=== PATIENT | male | born 1960 | race Caucasian/White ===

== ENCOUNTER 2017-10-05 13:23 | Inpatient (IN) | payer OTHER ==
[~2017-10-05] VITALS: Ht 188 cm; Wt 80.4 kg
--- NOTE | ~2017-10-05 | PLAN ---
[facility] [place] [address] REHAB UNIT PLAN OF CARE Name: SUBRAMANIANENDY Room #: 504-2 DIS IN M.R.#: [id number] Admission: 10/05/17 Attend Phys: Isiah Cedillo MD Discharge: 10/12/17 Date of : 62 Report #: [id number] THIS REPORT FOR: //name// CC: Isiah Cedillo [facility] unknown DATE OF SERVICE: 10/07/2017 The patient was seen back today in followup. He is in no distress. Temperature 36.8, pulse 82, respirations 18, blood pressure 124/83. No focal calf swelling. Transfers are contact guard. He is ambulating min assist, 350 feet, without a device. In occupational therapy, lower body dressing is min assist, upper body dressing is set up. He has [id number] comprehensive deficits. ASSESSMENT: 1. Hypoxic encephalopathy. 2. Out of hospital cardiac arrest with pulseless electrical activity. 3. History of coronary artery disease with cardiac stents. 4. Hypertension. 5. History of tobacco abuse. 6. Initial dysphagia that has improved. 7. Significant cognitive issues. 8. Functional mobility and ADL deficits. PLAN: The overall plan of care is based on the preadmission screen, post-admission physician evaluation and information garnered from therapy assessments. 1. Estimated length of stay is 10 days to 2 weeks depending progress. 2. Medical prognosis is reasonably good. 3. Anticipated interventions includes the interdisciplinary acute inpatient rehabilitation program with PT and OT and speech involved, rehab nursing assisting as well as interdisciplinary team. 4. Anticipated functional outcomes would be for the patient to become modified independent with transfers, mobility and ADLs, so that he can hopefully return back to his prior living situation. 5. Discharge destination would be back to the home setting. He does live alone and we will need to be checking regarding other family members, friends, etc. that could be of assistance. He apparently has 2 sisters who are involved. 6. Expected therapy by discipline includes PT, OT and Speech 1 hour per day, each five days a week throughout the duration of the acute inpatient rehabilitation stay. <ELECTRONICALLY SIGNED> By: Isiah Cedillo MD 11/04/17 [id number] [id number] Isiah Cedillo MD /nt
--- NOTE | ~2017-10-05 | HC ---
[facility] [place] [address] CONSULTATION Name: ENDY SUBRAMANIAN Room #: 504-1 ADM IN M.R.#: [id number] Admission: 10/05/17 Attend Phys: Isiah Cedillo MD Discharge: Date of : 62 Report #: [id number] THIS REPORT FOR: //name// CC: Isiah Cedillo [facility] unknown DATE OF SERVICE: 10/08/2017 NEUROBEHAVIORAL STATUS EXAM ATTENDING PHYSICIAN: Isiah Cedillo MD EVENT MARKETING INTERN: Milad Walton, PhD CLINICAL PRESENTATION: The patient is a 56-year-old male admitted to the [facility] Unit for a comprehensive inpatient rehabilitation program to improve functional mobility, activities of daily living and self-care and mental status secondary to deficits from anoxic encephalopathy. The patient has a past medical history of hypertension, dyslipidemia and coronary artery disease. He is reported to have experienced an out of hospital cardiac arrest, while at the [employer] in which he is employed. The patient was placed on hypothermic protocol and required intermittent IV pressors during his recovery. A complete description of his medical condition and history along with medications can be found in his medical record. Neuropsychological consultation was requested to provide assistance in the assessment of cognitive and emotional status and to provide recommendations and services. Prior to this most recent admission, he was living independently in his own home. 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 The patient reports having a large family of 9 siblings. He states that 2 of the siblings might be . He is a high school graduate. The patient has a remote history of severe alcohol and drug abuse. He reports abstinence from alcohol and drug use for the last 12 years. The patient has never and has no children. TECHNIQUES UTILIZED: Clinical interview, review of medical records, staff consultation and behavioral observation, Mini-Mental status exam 2 standard version, clock drawing and verbal fluency assessment (category) and brief abstract reasoning test. EXAMINATION FINDINGS: The patient was alert and cooperative with the assessment. His voice is tremulous. He has an upper extremity tremor. The patient was vague in regard to describing the reason for his hospitalization. He has amnesia surrounding his initial admission. There is no evidence of aphasia. He does not report auditory or visual hallucinations[place] [address] CONSULTATION Name: MORISENDY Tatiana Room #: 504-1 [facility]#: [id number] Admission: 10/05/17 Attend Phys: Isiah Cedillo MD Discharge: Date of : 62 Report #: [id number] thought disorder. He described having difficulty with memory, depression and anxiety. He does not report difficulty with word finding, sleep or appetite. Physical pain is described in his chest as well as his head. His performance on the MMSE 2 brief version was extremely low with a raw score of 11 of 16 and a T score of 17. He was 3/3 for initial registration, 4/5 for orientation to time, 4/[address] and 0/3 for immediate recall of 3 items after a brief time delay and distraction. Performance on the MMSE 2 standard version was extremely low with a raw score of 20 and a T score of 19. He was 2/5 for serial sevens, 1/2 for naming, 1/1 for repetition, 3/3 for auditory comprehension. He could read and follow a single command and write a sentence. The patient was unable to copy a simple geometric design. Category fluency was extremely low with a raw score of 12. Brief abstract reasoning test was extremely low with a raw score of 3/8. The patient was unable to set the hands of the clock at a designated time. The concept of hand placement was impaired. This type of presentation suggests a severe impairment with memory, sustained concentration and attention, visual spatial organization and executive functioning. 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 RECOMMENDATIONS: The patient will require supervision to assist with the management of medication, finances and nutrition. Driving should be discontinued. A followup neuropsychological evaluation will help clarify the severity of cognitive deficits approximately three months most discharge. At this time, 24-hour care is necessary. Unfortunately, ecovery from anoxia is often very poor. Thank you very much for allowing me to provide the consultation on this patient. <ELECTRONICALLY SIGNED> By: Milad Walton, PhD 10/10/17 [id number] Milad Walton, PhD /nt
--- NOTE | ~2017-10-05 | H ---
[facility] [place] [address] HISTORY AND PHYSICAL Name: SUBRAMANIANENDY Tatiana Room #: 504-1 ADM IN M.R.#: [id number] Admission: 10/05/17 Attend Phys: Isiah Cedillo MD Discharge: Date of : 62 Report #: [id number] THIS REPORT FOR: //name// CC: Isiah Cedillo [facility] unknown DATE OF SERVICE: 10/05/2017 HISTORY AND PHYSICAL/POSTADMISSION PHYSICIAN EVALUATION HISTORY OF PRESENT ILLNESS: The patient is a 56-year-old white male, who had an out of hospital cardiac arrest. He [place] at a mall. Security performed CPR. EMS arrived, he was in PEA. He was admitted to [facility]. He was placed on the hypothermic protocol, required intermittent IV pressors. Neurologic status was noted to be improving. It appeared that he had had a cardiopulmonary arrest and was found to be in PEA. He was also found to be severely hypokalemic with a potassium of 2.6. Since the initial rhythm was noted to be PEA and not VT or VF and ejection fraction by echo was noted to be normal. It was not felt appropriate to do an EP study or role for ICD. He was felt to be cardiovascularly stable and ready for rehab. He has now been admitted as he has significant hypoxic encephalopathy with decreased cognition, safety, and insight as well as decreased balance, functional mobility, and ADL independence. He has now been admitted to the acute in-hospital inpatient rehabilitation [place] at [facility]. PAST MEDICAL HISTORY: Includes a history of hypertension, dyslipidemia, and history of coronary artery disease. PAST SURGICAL HISTORY: Includes PCI with stenting, palate repair as well as left hip surgery. HABITS: Includes tobaccoism, questionable history of alcohol abuse. ALLERGIES: No known drug allergies. SOCIAL HISTORY: He lives alone in a mobile home, 5 steps in, did not utilize gait aids. 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 REVIEW OF SYSTEMS: He has had some upper chest wall discomfort, which was noted over at [place] and felt to be from the compressions. No chest pain per se or shortness of breath or abdominal discomfort. No focal extremity pain complaints. PHYSICAL EXAMINATION: GENERAL: A tall 56-year-old white male, in no obvious distress. [address] [address] HISTORY AND PHYSICAL Name: ENDY SUBRAMANIAN Room #: 504-1 ADM IN .R.#: [id number] Admission: 10/05/17 Attend Phys: Isiah Cedillo MD Discharge: Date of : 62 Report #: [id number] VITAL SIGNS: Temperature 36.9, pulse 92, respirations 16, blood pressure 100/76. The patient is alert. HEENT: Appeared to be benign. He knew he was at [place]. He was 1/3 at 3 minutes for short-term memory. Serial 7's were poor. EOMs appeared intact. CHEST: Sounded clear to auscultation. CARDIOVASCULAR: Regular rate and rhythm. NEUROLOGIC: He has some sternal and costal discomfort from the CPR. ABDOMEN: Bowel sounds positive, nontender. GENITOURINARY AND RECTAL: Deferred. EXTREMITIES: He has functional range of motion of the upper extremity. Strength is grade 4- to 4/5. DTRs are trace to 1. Lower extremities, no focal calf swelling, functional range of motion with strength grade 4+/5. He does have decrease balance with functional mobility with contact guard transfers and min assist with attempt at short distance ambulation. ASSESSMENT: A 56-year-old white male with the following problem list: 1. Hypoxic encephalopathy. 2. Out of hospital cardiac arrest with pulseless electrical activity. 3. History of coronary artery disease with cardiac stents. 4. Hypertension. 5. History of tobacco abuse. 6. Initial dysphagia that has improved. 7. Significant cognitive issues. 8. Functional mobility and activities of daily living deficits. PLAN: The patient is admitted for acute in-hospital inpatient rehabilitation. From a postadmission physician evaluation perspective, there are no relevant changes since the preadmission screening. Please see the above review of prior and current medical and functional conditions and comorbidities. Please see the patient's previous and current functional status. As far as risk of complications, the patient has multiple medical comorbidities as noted above. Initial plan of care involves the interdisciplinary acute inpatient rehabilitation program with the goal of maximizing the patient's functional independence, so that he can hopefully return back to his prior living situation. Prognosis is reasonably good with estimated length of stay probably at least 10 days to 2 weeks pending progress. Potential barriers would include the patient's multiple medical comorbidities and decreased functional status. We will ask Internal Medicine to assist regarding medical issues in this patient's care. Also, he was seen by Psychiatry apparently while at [place] and they noted generalized anxiety disorder with cognitive disorder and adjustment disorder with mixed emotional features. Other comorbidities during [facility] [address] [place] [address] HISTORY AND PHYSICAL Name: ENDY SUBRAMANIAN Room #: 504-1 ADM IN M.R.#: [id number] Admission: 10/05/17 Attend Phys: Isiah Cedillo MD Discharge: Date of : 62 Report #: [id number] his acute hospitalization includes acute renal insufficiency, acute respiratory failure, troponin elevation, SIRS with leukocytosis, and lactic acidosis. <ELECTRONICALLY SIGNED> By: Isiah Cedillo MD 10/07/17 1306 [id number] Isiah Cedillo MD /PMT
[2017-10-05] MEDS ORDERED: AUGMENTIN 875-1 EACH PO (16:58)
[2017-10-05] MEDS ORDERED: PLAVIX 75 MG TA75 M1 PO (16:58)
[2017-10-05] MEDS ORDERED: MAGOX 400400 MG PO (17:00)
[2017-10-05] MEDS ORDERED: LISINOPRIL10 MG PO (17:00)
[2017-10-05] MEDS ORDERED: TOPROL XL100 MG PO (17:09)
[2017-10-05] MEDS ORDERED: NITROGLYCERIN0.4 MG (17:12)
[2017-10-05] MEDS ORDERED: SIMVASTATIN40 MG PO (17:12)
[2017-10-05] MEDS ORDERED: ALDACTONE25 MG PO (17:13)
[2017-10-05 19:30] VITALS: BP 105/71
[2017-10-06 06:19] LABS: HEMATOCRIT 29.3 % (42.0-52.0); HEMOGLOBIN 10.4 gm/dL (14.0-18.0); MCH 34.8 pg (26.0-34.0); MCHC 35.4 g/dL (28.0-37.0); MCV 98.3 fL (80.0-100.0); RBC 2.98 mil/uL (4.50-6.00); WBC 10.4 thou/uL (4.0-11.0)
[2017-10-06 06:31] LABS: CALCIUM 9.2 mg/dL (8.5-10.1); CREATININE 0.9 mg/dL (0.7-1.3); POTASSIUM 3.8 mmol/L (3.5-5.1)
[2017-10-06 08:00] VITALS: BP 100/76
[2017-10-06 19:00] VITALS: BP 128/83
[2017-10-07 07:30] VITALS: BP 124/83
[2017-10-07 12:25] LABS: HEMATOCRIT 35.1 % (42.0-52.0); HEMOGLOBIN 11.9 gm/dL (14.0-18.0); MCH 33.4 pg (26.0-34.0); MCHC 33.8 g/dL (28.0-37.0); MCV 98.8 fL (80.0-100.0); RBC 3.56 mil/uL (4.50-6.00); RDW 13.4 % (10.5-14.5); WBC 9.7 thou/uL (4.0-11.0)
[2017-10-07 12:26] LABS: PLATELET COUNT 616 thou/uL (150-400)
[2017-10-07 12:41] LABS: CALCIUM 9.4 mg/dL (8.5-10.1); CREATININE 1.2 mg/dL (0.7-1.3); POTASSIUM 4.4 mmol/L (3.5-5.1)
[2017-10-07 13:02] LABS: ABSOLUTE NEUTROPHILS 7.4 thou/uL (1.4-8.2); PLATELET ESTIMATE INCREASED
[2017-10-07 19:58] VITALS: BP 100/51
[2017-10-08 06:55] VITALS: BP 111/77
[2017-10-08 20:58] VITALS: BP 81/47
[2017-10-09 00:19] VITALS: BP 110/67
[2017-10-09 08:00] VITALS: BP 119/63
[2017-10-09 19:22] VITALS: BP 106/71
[2017-10-10 06:36] LABS: ABSOLUTE NEUTROPHILS 3.8 thou/uL (1.4-8.2); BASOPHILS 1.2 % (0.0-2.0); EOSINOPHILS 3.7 % (0.0-3.0); HEMATOCRIT 34.4 % (42.0-52.0); HEMOGLOBIN 11.8 gm/dL (14.0-18.0); MCH 33.5 pg (26.0-34.0); MCHC 34.4 g/dL (28.0-37.0); MCV 97.5 fL (80.0-100.0); MONOCYTES 11.2 % (1.0-8.0); PLATELET COUNT 640 thou/uL (150-400); POLYS 58.9 % (36.0-66.0); RBC 3.53 mil/uL (4.50-6.00); RDW 13.7 % (10.5-14.5); WBC 6.4 thou/uL (4.0-11.0)
[2017-10-10 06:44] LABS: CALCIUM 8.9 mg/dL (8.5-10.1); POTASSIUM 4.1 mmol/L (3.5-5.1)
[2017-10-10 08:00] VITALS: BP 110/76
[2017-10-10 20:20] VITALS: BP 97/64
[2017-10-11 06:48] VITALS: BP 108/75
[2017-10-11 19:55] VITALS: BP 111/73
[2017-10-12] VITALS (7 sets, daily range): BP systolic 109; BP diastolic 74
[2017-10-12 04:23] LABS: CALCIUM 8.8 mg/dL (8.5-10.1); POTASSIUM 3.9 mmol/L (3.5-5.1)
[2017-10-12] MEDS ORDERED: TOPROL XL100 MG PO (10:11)
[2017-10-12] MEDS ORDERED: COLACE100 MG PO (10:11)
[2017-10-12] MEDS ORDERED: PEPCID20 MG PO (10:11)
[2017-10-12] MEDS ORDERED: NITROGLYCERIN0.4 MG PO (10:11)
[2017-10-12] MEDS ORDERED: MAGOX 400400 MG PO (10:11)
[2017-10-12] MEDS ORDERED: ALDACTONE25 MG PO (10:11)
[2017-10-12] MEDS ORDERED: SIMVASTATIN40 MG PO (10:11)
[2017-10-12] MEDS ORDERED: PLAVIX 75 MG TA75 M1 PO (10:11)
[2017-10-12] MEDS ORDERED: LISINOPRIL10 MG PO (10:11)
[2017-10-12] MEDS ORDERED: TRAZODONE HCL50 MG PO (12:32)
== END 2017-10-12 13:43 | disposition home health service (06) | DRG 91 ==
LOC: ENTRNSPT 10-12 13:37 → EDTRNSPTSTS 10-12 13:39
PROVIDERS: Family Medicine; Nurse Practitioner; Physical Medicine & Rehabilitation
DX: G93.1 Anoxic brain damage, not elsewhere classified (principal); I46.9 Cardiac arrest, cause unspecified; E87.6 Hypokalemia; I10 Essential (primary) hypertension; E78.5 Hyperlipidemia, unspecified; I25.10 Atherosclerotic heart disease of native coronary artery without angina pectoris; Z60.2 Problems related to living alone; R13.10 Dysphagia, unspecified; F43.22 Adjustment disorder with anxiety; G31.84 Mild cognitive impairment of uncertain or unknown etiology; Z79.899 Other long term (current) drug therapy; Z95.5 Presence of coronary angioplasty implant and graft
CPT/HCPCS: 10092